=== PATIENT | male | born 1990 | race Caucasian/White ===

== ENCOUNTER 2023-03-30 09:52 | Emergency (ER) | payer OTHER, SELFPAY ==
[2023-03-30 09:56] VITALS: BP 134/67; PULSE 57; RESP 14; TEMP 36.1; O2SAT 100; BMI 24.8
--- NOTE | 2023-03-30 10:25 | DI.US.S_ITS ---
PROCEDURE: US RENAL COMPLETE INDICATIONS: BLOOD IN URINE TECHNIQUE: Real-time scanning was performed of the kidneys and bladder, with image documentation. COMPARISON: None. FINDINGS: Kidneys: Kidneys are normal in size. Right kidney measures 9.5 cm long; left kidney measures 10.7 cm long. Right renal cortical thickness is 1.8 cm; left renal cortical thickness is 2.1 cm. Renal cortical echotexture is normal. No hydronephrosis or nephrolithiasis. No suspicious solid mass lesions. Bladder: Pre-void bladder volume is 25 mL. Post-void residual is 0 mL. Pre-void images demonstrate no intraluminal masses or stones. On pre-void images, neither ureteral jets are noted with color Doppler interrogation. (Of note, ureteral jets may not be detectable in up to 25% of cases due to insufficient differences in specific gravity between ureteral and bladder urine). Miscellaneous: No free pelvic fluid. IMPRESSION: No sonographic evidence of nephrolithiasis and no hydronephrosis. Note: Small kidney stones are poorly visualized on this examination. Dictated by: Alex Bourne M.D. on 03/30/2023 at 11:42 Approved by: Alex Bourne M.D. on 03/30/2023 at 11:47
--- NOTE | 2023-03-30 10:29 | ED.MALEGU ---
HPI - Male Genitourinary General Chief complaint: Urogenital-Male Stated complaint: unrinating blood Time Seen by Provider: 03/30/23 09:59 Source: patient Mode of arrival: Ambulatory History of Present Illness HPI Narrative: 32-year-old male with history of rheumatoid arthritis on methotrexate presents for dark red blood in his urine this morning. Patient states that he was taking a routine pre-employment drug test when he noticed that the end of his stream was ?a large amount? of ?dark red blood?. He became very concerned and his brought him to the ER for evaluation. Patient has been taking methotrexate for the last 8-9 months. He denies any history of kidney or bladder issues. He states that he feels a small amount of pain at the base of his penis when he urinated today, denies testicular pain or abdominal pain. Denies previous history of instrumentation. Denies family history of kidney or bladder issues. Denies concern for STIs. Related Data Allergies Allergy/AdvReac Type Severity Reaction Status Date / Time No Known Drug Allergies Allergy Verified 03/30/23 09:56 Review of Systems Review of Systems Narrative: CONSTITUTIONAL- Denies: fever, chills, fatigue HEENT- Denies: sore throat, nosebleed, vision changes RESPIRATORY- Denies: shortness of breath, cough, wheezing CARDIAC- Denies: chest pain, edema, orthopnea GI- Denies: abdominal pain, nausea, vomiting, constipation, diarrhea -reports: Hematuria Denies: frequency, dysuria, flank pain MSK- Denies: extremity pain, extremity swelling, joint pain, joint swelling SKIN- Denies: rash, itching, burn, swelling NEUROLOGICAL- Denies: headache, numbness, weakness, dizziness PSYCHIATRIC- Denies: anxiety, depression, suicidal ideation, homicidal ideation Patient History Social History Smoking Status: Never smoker Smoking Status: Never smoker alcohol intake frequency: holidays/special occasions only Substance Use Type: does not use Exam Initial Vital Signs Initial Vital Signs: Vital Signs Temperature 97.0 F L 03/30/23 09:56 Pulse Rate 57 L 03/30/23 09:56 Respiratory Rate 14 03/30/23 09:56 Blood Pressure 134/67 03/30/23 09:56 Pulse Oximetry 100 03/30/23 09:56 Oxygen Delivery Method Room Air 03/30/23 09:56 Const: Awake, alert, no acute distress, nontoxic appearing Eyes: PERRL, EOMI, conjunctiva normal ENT: Atraumatic, dentition normal, mucous membranes moist Cardiac: regular rate, regular rhythm RESP: unlabored, clear bilaterally, no wheezing GI: Atraumatic, soft, nontender, nondistended, no rebound, no guarding : 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 Does have a history of autoimmune disorder. No gross blood on exam, hemodynamically stable. We will order labs and imaging. Orders Ordered: ED Orders 03/30/23 10:25 US renal complete Stat 03/30/23 10:27 Complete Blood Count AUTO DIFF Stat Comprehensive Metabolic Panel Stat 03/30/23 10:53 Urine Microscopic Stat 03/30/23 11:55 CT abdomen pelvis w con Stat Reevaluation(s) Reevaluation #1: Laboratory work is unremarkable, creatinine normal, hemoglobin normal. Ultrasound shows no acute findings. CT of the abdomen and pelvis with contrast shows bladder thickening concerning for cystitis. Urinalysis does show RBCs, however there is no leukocyte esterase, bacteria, WBCs to suggest infection. Question if this is related to patient's methotrexate. Patient was counseled at bedside of the results of all of his labs and imaging. I recommended that the patient speak urgently with his primary care physician about the possibility of methotrexate induced cystitis and the possibility of changing immunomodulators. Patient counseled to take anti-inflammatories as needed for pain. ED return precautions discussed at bedside. Patient expressed understanding of the plan and is in agreement at this time. All questions answered at the time of discharge. Vital Signs Vital signs: Vital Signs - 8 hr 03/30/23 09:56 03/30/23 12:45 03/30/23 13:00 Temperature 97.0 F L Pulse Rate 57 L 70 Respiratory Rate 14 Blood Pressure 134/67 119/72 Pulse Oximetry 100 99 Oxygen Delivery Method Room Air Room Air 03/30/23 13:00 Temperature Pulse Rate 60 Respiratory Rate Blood Pressure Pulse Oximetry 100 Oxygen Delivery Method MDM - Male Genitourinary Differential Diagnosis Differential diagnosis: Likely urinary tract infection, urethritis and acute retention of urine Lab Data 03/30/23 10:27 03/30/23 10:27 Labs: Lab Results 03/30/23 03/30/23 03/30/23 Range/Units 10:27 10:27 10:53 WBC 5.2 (4.5-11.0) X10^3/uL RBC 4.66 (4.5-5.9) X10^6/uL Hgb 14.0 (13.5-17.5) g/dL Hct 41.1 (41-53) % MCV 88.2 (80-100) fL MCH 30.0 (26-34) PG MCHC 34.0 (30-36) % RDW 13.5 (11.6-14.8) % Plt Count 226 (150-400) X10^3/uL Neut % (Auto) 41.8 L (50-75) % Lymph % (Auto) 43.5 H (25-40) % [place] % (Auto) 11.6 (3-14) % Eos % (Auto) 2.3 (2-4) % Baso % (Auto) 0.8 (0-2) % Neut # (Auto) 2200 (8259-4880) /uL Lymph # (Auto) 2300 (1512-0917) /uL [place] # (Auto) 600 (0-900) /uL Eos # (Auto) 100 (0-450) /uL Baso # (Auto) 0 (0-100) /uL Sodium 136 L (137-145) mmol/L Potassium 3.7 (3.4-5.1) mmol/L Chloride 99 (98-107) mmol/L Carbon Dioxide 29 (22-32) mmol/L BUN 19 (9-20) mg/dL Creatinine 0.91 (0.66-1.25) mg/dL Estimated GFR > 60 (>60) mL/min BUN/Creatinine Ratio 20.9 (6-22) Glucose 107 H (70-100) mg/dL Calcium 9.5 (8.4-10.2) mg/dL Total Bilirubin 0.4 (0.2-1.3) mg/dL AST 35 (17-59) IU/L ALT 28 (<50) IU/L Alkaline Phosphatase 64 (38-126) U/L Total Protein 7.1 (6.3-8.2) g/dL Albumin 4.5 (3.5-5.0) g/dL Globulin 2.6 (1.7-4.1) g/dL Albumin/Globulin Ratio 1.7 (1.0-2.8) Urine RBC 30-100/hpf H (0-5/HPF) Urine WBC 1-5/hpf (0-5/HPF) Ur Squamous Epith Cells 1-5 /hpf (0-5/HPF) Urine Bacteria None seen (None) Ur Culture Indicated? Cult not indicated Urine Dip Bedside Urine Glucose Negative Bedside Urine Bilirubin - Negative Bedside Urine Ketone - Negative Urine Specific [place] 1.020 Bedside Urine Occult Blood +++ Bedside Urine pH 6.0 Bedside Urine Protein - Negative Bedside Urine Urobilinogen - Negative Bedside Urine Nitrite - Negative Bedside Urine Leukocytes - Negative Esterase Discharge Plan Departure Patient Disposition: Home Clinical Impression: Hematuria, Cystitis Instructions: DI for Hemorrhagic Cystitis, DI for Hematuria Activity Restrictions/Additional Instructions: YOU WERE SEEN TODAY FOR BLOOD IN YOUR URINE. 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 THERE WERE NO ABNORMAL FINDINGS ON ULTRASOUND, HOWEVER YOUR BLADDER WALL WAS THICKENED ON CT TODAY, HOWEVER YOUR URINALYSIS DID NOT SHOW ANY SIGNS OF INFECTION. THIS COULD POSSIBLY BE RELATED TO YOUR METHOTREXATE, HOWEVER FURTHER TESTING IS INDICATED. I RECOMMEND SPEAKING TO YOUR PRIMARY CARE PHYSICIAN ABOUT THE POSSIBILITY OF STOPPING METHOTREXATE, THIS COULD BE RELATED. Referrals: Miscellaneous,MD Sommer [Primary Care Provider] - Anup Drew MD [Non-Staff] - Stand Alone Forms: Patient Portal/API
[2023-03-30 11:00] LABS: Alanine Aminotransferase 28 IU/L (<50); Albumin 4.5 g/dL (3.5-5.0); Albumin Globulin Ratio 1.7 (1.0-2.8); Alkaline Phosphatase 64 U/L (38-126); Aspartate Aminotransferase 35 IU/L (17-59); BUN Creatinine Ratio 20.9 (6-22); Bilirubin Total 0.4 mg/dL (0.2-1.3); Blood Urea Nitrogen 19 mg/dL (9-20); Calcium 9.5 mg/dL (8.4-10.2); Carbon Dioxide 29 mmol/L (22-32); Chloride 99 mmol/L (98-107); Estimated Glomerular Filt Rate > 60 mL/min (>60); Globulin 2.6 g/dL (1.7-4.1); Glucose 107 mg/dL (70-100); HEMOLYSIS < 15 (0-50); Potassium 3.7 mmol/L (3.4-5.1); Sodium 136 mmol/L (137-145); Total Protein 7.1 g/dL (6.3-8.2)
[2023-03-30 11:01] LABS: Add Manual Diff / Slide Review NO; Basophils Absolute Auto 0 /uL (0-100); Basophils Percent Auto 0.8 % (0-2); Eosinophils Absolute Auto 100 /uL (0-450); Eosinophils Percent Auto 2.3 % (2-4); Hematocrit 41.1 % (41-53); Lymphocytes Absolute Auto 2300 /uL (1100-4500); Lymphocytes Percent Auto 43.5 % (25-40); Mean Corpuscular Volume 88.2 fL (80-100); Monocytes Absolute Auto 600 /uL (0-900); Monocytes Percent Auto 11.6 % (3-14); Neutrophils Absolute Auto 2200 /uL (1500-7000); Neutrophils Percent Auto 41.8 % (50-75); Platelet Count 226 X10^3/uL (150-400); Red Blood Cell Count 4.66 X10^6/uL (4.5-5.9); Red Cell Distribution Width 13.5 % (11.6-14.8); White Blood Cell Count 5.2 X10^3/uL (4.5-11.0)
[2023-03-30 11:16] LABS: Bacteria Urine None Seen; RBC Urine 30-100/HPF (0-5/HPF); Squamous Epithelial Cell Urine 1-5 /HPF (0-5/HPF); WBC Urine 1-5/HPF (0-5/HPF)
[2023-03-30 11:17] LABS: Culture Indicated Urine Cult Not Indicated
--- NOTE | 2023-03-30 11:55 | DI.CT.S_ITS ---
PROCEDURE: CT ABDOMEN PELVIS W CON INDICATIONS: HEMATURIA TECHNIQUE: After the administration of oral and IV contrast, axial sections were acquired from the lung bases to the pubic symphysis. Coronal and sagittal reformats were performed. For radiation dose reduction, the following was used: automated exposure control, adjustment of mA and/or kV according to patient size. COMPARISON: [facility], , US RENAL COMPLETE, 03/30/2023, 10:40. FINDINGS: Image quality: Excellent. Lung bases: Unremarkable. Small hiatal hernia. Heart: No significant findings. ABDOMEN: Liver: Unremarkable. Gallbladder: Unremarkable. Biliary ducts: Unremarkable. Pancreas: Unremarkable. Spleen: Unremarkable. Adrenal Glands: Unremarkable. Kidneys and Ureters: Unremarkable. Stomach and Bowel: Stomach, small bowel loops, and colon are normal in caliber. There is a large amount of stool in colon. Normal appendix. Peritoneum: No abnormal intraperitoneal fluid. No free air. Ventral Wall: No hernia. Abdominal Nodes: No retroperitoneal or mesenteric adenopathy by size criteria. Vessels: Aorta and inferior vena cava are normal in size. PELVIS: Pelvic Organs: Unremarkable. Bladder: There is diffuse bladder wall thickening. Pelvic Nodes: No enlarged lymph nodes. Miscellaneous: No inguinal hernias are seen. Bones: Unremarkable. IMPRESSION: 1. Diffuse bladder wall thickening suggesting cystitis. 2. No renal stones or hydronephrosis. Dictated by: Chari Ryder M.D. on 03/30/2023 at 12:33 Approved by: Chari Ryder M.D. on 03/30/2023 at 12:42
[2023-03-30 12:45] VITALS: PULSE 70; O2SAT 99
--- NOTE | 2023-03-30 12:50 | PC.NURSE ---
Pt informed me that when he used the bathroom last, before CT, he had 8/10 pain from his low abdomen through his penis while urinating with hematuria present. Patient denies seeing a stone pass and denies pain at rest in bed. Provider made aware, no new orders.
[2023-03-30 13:00] VITALS: BP 119/72; PULSE 60; O2SAT 100
== END 2023-03-30 13:22 | disposition home or self-care (01) ==
PROVIDERS: Emergency Provider Emergency Medicine
DX: N30.91 Cystitis, unspecified with hematuria (principal)
CPT/HCPCS: 36415; 74177; 76770; 80053; 81003; 81015; 85025; 99284; Q9967